=== PATIENT | male | born 1950 | race Caucasian/White ===

== ENCOUNTER 2017-09-08 01:38 | Inpatient (IN) | payer OTHER ==
[~2017-09-08] VITALS: Ht 180.3 cm; Wt 82.6 kg
[2017-09-08] VITALS (8 sets, daily range): BP systolic 95–131; BP diastolic 56–81
[~2017-09-08 01:38] MED LIST: CARVEDILOL25 MG PO; CATAPRES-TTS 20.2 MG TD; COUMADIN 5 MG TA5 M1 PO; CRESTOR20 MG PO; CYMBALTA60 MG PO; LANTUS SUBQ; LISINOPRIL40 MG PO; MS CONTIN15 MG PO; NEURONTIN 300300 M1 PO; NOVOLOG100 UNIT/1 SQ; STOOL SOFT50 MG/5 ML PO; TRIAMTERENE/HCT1 CA1 PO
[2017-09-08 01:58] LABS: HEMATOCRIT 42.1 % (42.0-52.0); HEMOGLOBIN 13.7 gm/dL (14.0-18.0); MCHC 32.7 g/dL (28.0-37.0); MCV 91.8 fL (80.0-100.0); MPV 7.6 fl. (7.2-11.1); NUCLEATED RBCS 0 /100WBC; PLATELET COUNT* 138 thou/uL (150-400); RBC 4.58 mil/uL (4.50-6.00); RDW-CV 16.4 % (10.5-14.5); WBC 11.1 thou/uL (4.0-11.0)
[2017-09-08 02:04] LABS: ANION GAP 4 mmol/L (7-16); BUN 29 mg/dL (7-18); CALCIUM 7.8 mg/dL (8.5-10.1); CHLORIDE 99 mmol/L (98-107); CO2 36 mmol/L (21-32); CREATININE 1.3 mg/dL (0.6-1.3); GLUCOSE 49 mg/dL (70-99); POTASSIUM 3.2 mmol/L (3.5-5.1); SODIUM 139 mmol/L (136-145)
[2017-09-08 02:10] LABS: ALBUMIN 2.6 g/dL (3.4-5.0); ALKALINE PHOSPHATASE 112 U/L (46-116); LIPASE 32 U/L (73-393); SGOT 53 U/L (15-37); SGPT 36 U/L (30-65); TOTAL BILIRUBIN 2.2 mg/dL (<0.1-1.0); TOTAL PROTEIN 6.3 g/dL (6.4-8.2); TROPONIN-I LEVEL <0.06 ng/mL (<0.06)
[2017-09-08 02:11] LABS: INR 3.9; PROTIME 37.4 Seconds (9.20-11.50)
[2017-09-08 03:47] LABS: ABSOLUTE LYMPHOCYTES 0.4 thou/uL (0.8-5.3); ABSOLUTE MONOCYTES 1.3 thou/uL (0.0-1.2); ABSOLUTE NEUTROPHILS 9.3 thou/uL (1.6-8.1)
[2017-09-08 03:48] LABS: ANISOCYTOSIS 1+; PLATELET ESTIMATE DECREASED
[2017-09-08 10:36] LABS: DIRECT BILIRUBIN 0.9 mg/dL (<0.1-0.3); TOTAL BILIRUBIN 2.1 mg/dL (<0.1-1.0)
--- NOTE | 2017-09-08 15:50 | 2DMMODE ---
[place] [address] 2 D/M-MODE ECHOCARDIOGRAM Name: JUSTINO NUÑEZ Room: [address] IN [facility]#: [id number] Admission: 09/08/17 Attend Phys: Jason Coats, Discharge: Date of : 46 Date of Service: 09/08/17 1549 Report #: [id number] THIS REPORT FOR: //name// ADDENDUM APPROVED REPORT Study performed: 09/08/2017 10:51:43 EXAM: Comprehensive 2D, Doppler, and color-flow Echocardiogram Patient Location: In-Patient Room #: [facility] Status: routine BSA: 2.02 HR: 80 bpm BP: 106/81 mmHg Rhythm: NSR Other Information Study Quality: Good Indications Dyspnea 2D Dimensions LVEF(%): 25.70 (>50%) IVSd: 15.83 (7-11mm) LVOT Diam: 20.42 (18-24mm) LVDd: 52.20 mm PWd: 6.65 (7-11mm) Ascending Ao: 41.21 (22-36mm) LVDs: 45.95 (25-40mm) Aortic Root: 35.68 mm Cooper's LVEF: 25.70 % Volumes Left Atrial Volume (Systole) LA ESV Index: 55.50 mL/m2 Aortic Valve AoV Peak Francisco.: 1.19 m/s AO Peak Gr.: 5.69 mmHg LVOT Max P.67 mmHg AO Mean Gr.: 3.42 mmHg LVOT Mean P.66 mmHg LVOT Max V: 0.96 m/s AO V2 VTI: 18.59 cm LVOT Mean V: 0.58 m/s CHAIM (VTI): 2.56 cm2 LVOT V1 VTI: 14.54 cm AI Lewis: 2.12 m/s2 AI PHT: 450.91 [place] [address] 2 D/M-MODE ECHOCARDIOGRAM Name: JUSTINO NUÑEZ Room: [address] IN ..#: [id number] Admission: 09/08/17 Attend Phys: Jason Coats, Discharge: Date of : 46 Date of Service: 09/08/17 1549 Report #: [id number] Mitral Valve E/A Ratio: 2.25 MV Decel. Time: 180.34 ms MV E Max Francisco.: 1.21 m/s MV PHT: 52.30 ms MVA (PHT): 4.21 cm2 TDI E/Lateral E': 11.00 E/Medial E': 24.20 Medial E' Francisco.: 0.05 m/s Lateral E' Francisco.: 0.11 m/s Pulmonary Valve PV Peak Francisco.: 0.78 m/s PV Peak Gr.: 2.45 mmHg Tricuspid Valve RAP Estimate: 15.00 mmHg TR Peak Gr.: 32.35 mmHg RVSP: 47.35 mmHg PA Pressure: 47.35 mmHg Left Ventricle Left ventricle is mildly dilated. There is global hypokinesis with akinesis of the inferior wall. Mild concentric left ventricular hypertrophy. Left ventricular systolic function is moderate to severely decreased. LVEF is 30-35%. This study is not technically sufficient to allow evaluation of the LV diastolic function due to atrial fibrillation. Right Ventricle Right ventricle is mildly dilated. The right ventricular systolic function is normal. Pacemaker lead is present in the right ventricle. Atria Left atrium is severely dilated. Right atrium is moderately dilated. Aortic Valve The aortic valve is normal in structure. Trace aortic regurgitation. There is no aortic valvular stenosis. Mitral Valve The mitral valve is normal in structure. Moderate to severe mitral regurgitation No evidence of mitral valve stenosis. Tricuspid Valve The tricuspid valve is normal in structure. [place] [address] 2 D/M-MODE ECHOCARDIOGRAM Name: NUÑEZJUSTINOJUVENTINO DALLAS Room: [address] IN M.R.#: [id number] Admission: 09/08/17 Attend Phys: Jason Coats, Discharge: Date of : 46 Date of Service: 09/08/17 1549 Report #: [id number] tricuspid regurgitation. Moderate pulmonary hypertension. The RVSP is 45-50 mmHg. Pulmonic Valve The pulmonary valve is normal in structure. Mild pulmonic regurgitation. Great Vessels Aortic root is mildly dilated. IVC is dilated and collapses <50% with inspiration. Pericardium There is no pericardial effusion. <Conclusion> Left ventricle is mildly dilated. Mild concentric left ventricular hypertrophy. Left ventricular systolic function is moderate to severely decreased. LVEF is 30-35%. This study is not technically sufficient to allow evaluation of the LV diastolic function due to atrial fibrillation. Right ventricle is mildly dilated. Left atrium is severely dilated. Right atrium is moderately dilated. Moderate to severe mitral regurgitation Moderate to severe tricuspid regurgitation. Moderate pulmonary hypertension. The RVSP is 45-50 mmHg. Pacemaker lead is present in the right ventricle. Aortic root is mildly dilated. <ELECTRONICALLY SIGNED> By: Augustin Gardner MD, FACC 09/08/17 1549 1549 1549 Augustin Gardner MD, FACC /INF
[2017-09-09 04:00] VITALS: BP 101/63
[2017-09-09 05:07] LABS: HEMATOCRIT 41.5 % (42.0-52.0); HEMOGLOBIN 13.8 gm/dL (14.0-18.0); MCH 30.4 pg (26.0-34.0); MCHC 33.2 g/dL (28.0-37.0); MCV 91.6 fL (80.0-100.0); RBC 4.53 mil/uL (4.50-6.00); RDW-CV 16.7 % (10.5-14.5); WBC 10.9 thou/uL (4.0-11.0)
[2017-09-09 05:21] LABS: INR 3.1; PROTIME 29.5 Seconds (9.20-11.50)
[2017-09-09 05:44] LABS: ALBUMIN 2.2 g/dL (3.4-5.0); ALKALINE PHOSPHATASE 100 U/L (46-116); BUN 20 mg/dL (7-18); CALCIUM 7.7 mg/dL (8.5-10.1); CHLORIDE 102 mmol/L (98-107); CREATININE 1.1 mg/dL (0.6-1.3); GLUCOSE 47 mg/dL (70-99); MAGNESIUM 1.9 mg/dL (1.8-2.4); POTASSIUM 3.5 mmol/L (3.5-5.1); SGOT 38 U/L (15-37); SGPT 27 U/L (30-65); SODIUM 140 mmol/L (136-145); TOTAL BILIRUBIN 2.1 mg/dL (<0.1-1.0); TOTAL PROTEIN 5.7 g/dL (6.4-8.2)
[2017-09-09 05:48] LABS: ANION GAP < 0 mmol/L (7-16); CO2 39 mmol/L (21-32)
[2017-09-09 07:46] VITALS: BP 110/75
[2017-09-09 12:00] VITALS: BP 100/66
[2017-09-09 15:31] VITALS: BP 109/72
[2017-09-09 20:00] VITALS: BP 104/62
[2017-09-10] VITALS: BP 97/64
[2017-09-10 04:00] VITALS: BP 110/71
[2017-09-10 04:09] LABS: HEMATOCRIT 41.1 % (42.0-52.0); HEMOGLOBIN 13.5 gm/dL (14.0-18.0); MCH 30.1 pg (26.0-34.0); MCHC 32.9 g/dL (28.0-37.0); MCV 91.5 fL (80.0-100.0); MPV 7.8 fl. (7.2-11.1); RBC 4.49 mil/uL (4.50-6.00); RDW-CV 16.3 % (10.5-14.5); WBC 12.8 thou/uL (4.0-11.0)
[2017-09-10 04:12] LABS: CALCIUM 7.9 mg/dL (8.5-10.1); CREATININE 1.3 mg/dL (0.6-1.3); MAGNESIUM 1.9 mg/dL (1.8-2.4); POTASSIUM 3.8 mmol/L (3.5-5.1)
[2017-09-10 04:21] LABS: INR 2.2; PROTIME 20.9 Seconds (9.20-11.50)
[2017-09-10 07:50] VITALS: BP 93/61
[2017-09-10 10:08] LABS: HEPATITIS B SURFACE AG Negative (Negative)
--- NOTE | 2017-09-10 10:33 | CON ---
[address] [address] CONSULTATION Name: NUÑEZJUSTINO BURT Room: [address] ADM IN M.R.#: [id number] Admission: 09/08/17 Attend Phys: Jason Coats MD Discharge: Date of : 46 Report #: [id number] THIS REPORT FOR: //name// CC: Jason Coats [facility] physician/PCP DATE OF SERVICE: 09/09/2017 REQUESTING PHYSICIAN: Jason Coats MD CHIEF COMPLAINT: Shortness of breath. HISTORY OF PRESENT ILLNESS: The patient is a 67-year-old man with a history of heart disease, [facility] brought him here. Clinically, he denies chest pain or pressure. He was brought in with volume overload. Most of his distention was involved in his abdomen rather than lower extremities. He has chronic dyspnea with exertion. He has also underlying history of lung disease. ECG showed a paced rhythm. His troponin is normal. Although he has had coronary interventions following remote bypass surgery, he has not been having angina, most of his problems apparently had been centered around congestive heart failure and liver disease. He has a history of alcoholic cirrhosis. He denies syncope or presyncope. He also has a history of confusion and associated encephalopathy. PAST MEDICAL HISTORY: 1. Remote bypass surgery. He cannot remember the number of bypasses, where it was, but he thinks it was somewhere in [place], was over 20 years ago. He has also had what sounds like 2 separate PCIs. He had an echocardiogram this hospitalization, which revealed an EF in the 35% range, demonstrated moderate to severe mitral regurgitation as well as a dilated chambers and moderate to severe tricuspid regurgitation, PA pressures in the 50 mmHg range. 2. Pulmonary hypertension. 3. Alcoholic liver disease. 4. COPD. 5. Diabetes mellitus, insulin requiring. 6. afib HOME MEDICATIONS: Coreg 25 mg p.o. b.i.d., Cymbalta 60 mg at bedtime, Neurontin, HCTZ/triamterene 25/37.5 mg daily, lisinopril 40 mg daily, rosuvastatin 20 mg daily and warfarin 5 mg daily presumably for an atrial arrhythmia. REVIEW OF SYSTEMS: GENERAL: No [place] [address] CONSULTATION Name: NUÑEZJUSTINOJUVENTINO DALLAS Room: [address] IN [facility].#: [id number] Admission: 09/08/17 Attend Phys: Jason Coats MD Discharge: Date of : 46 Report #: [id number] PULMONARY: No cough. Positive dyspnea with exertion, positive orthopnea, positive PND. CARDIOVASCULAR: No chest pain. No palpitations. NEUROLOGIC: No syncope or seizures. HEMATOLOGIC: No anemia or bleeding disorders. RENAL: No history of kidney failure. No history of dialysis. SKIN: No rashes. GENITOURINARY: No dysuria or hematuria. ABDOMEN: Positive distention. No constipation. PHYSICAL EXAMINATION: VITAL SIGNS: Blood pressure is 110/75, pulse is 80. GENERAL: He is a poor historian. He is in no apparent distress. He is sitting on the edge of the bed. His weight is 82 kilograms. This is a cachectic appearing elderly male. HEENT: No trauma. Eyes: There is evidence of an icteric changes. NECK: There is no jugular venous distention. CARDIOVASCULAR: Regular. There is a 3/6 systolic murmur and S3. LUNGS: Diminished breath sounds bilaterally. ABDOMEN: Distended, nontender. No rebound. EXTREMITIES: There is a trace amount of edema. NEUROLOGIC: There are no focal deficits. RADIOLOGY: Chest x-ray reveals pacemaker leads in the interstitial pattern. Abdominal ultrasound demonstrated hepatosplenomegaly, mild to moderate ascites. LABORATORY DATA: Hemoglobin is 13.8. Sodium is 140, potassium 3.5, CO2 is 39, anion gap was less than 0, BUN was 20, creatinine is 1.1. IMPRESSION: 1. Acute systolic congestive heart failure. This appears to be chronic left ventricular dysfunction. We will try to obtain records from the [facility]. In the meantime, I think he will have continued benefit with diuresis. There is also a component of volume overload secondary to his alcoholic liver disease and ascites. 2. Encephalopathy. This patient is a poor historian. GI consult may be helpful. 3. Hypertension. This is stable. 4. Diabetes mellitus. 5. Coronary artery disease. He reports no angina and he does not seem to be a good candidate for an ischemic evaluation as I do not think he has a clinical angina. 6. Mitral valve and tricuspid valve disease. He has moderate to severe disease and regurgitation of both valves and evidence of volume overload and the patient clinically does not appear to be a good candidate for aggressive treatment. I will continue with diuretic therapy. [address] [address] CONSULTATION Name: JUSTINO NUÑEZ Room: [facility] IN [place].#: [id number] Admission: 09/08/17 Attend Phys: Jason Coats MD Discharge: Date of : 46 Report #: [id number] 7. warfarin anticoagulation- he will continue with this treatment as per his usual him specialist recommendations/follow up <ELECTRONICALLY SIGNED> By: Marito Etienne MD, FACC 09/10/17 1033 1247 1819Marito Etienne MD, FACC /nt
[2017-09-10 11:46] LABS: URINE BILIRUBIN NEGATIVE (Negative); URINE BLOOD NEGATIVE (Negative); URINE CLARITY CLEAR; URINE COLOR YELLOW; URINE GLUCOSE-RANDOM 2+ (Negative); URINE KETONES NEGATIVE (Negative); URINE LEUKOCYTES-REFLEX NEGATIVE (Negative); URINE NITRITE-REFLEX NEGATIVE (Negative); URINE PROTEIN NEGATIVE (Negative); URINE SPECIFIC GRAVITY <= 1.005 (1.005-1.030); URINE UROBILINOGEN 0.2 E.U./dl (0.2-1.0)
[2017-09-10 12:25] VITALS: BP 85/55
[2017-09-10 16:20] VITALS: BP 87/56
[2017-09-10 20:00] VITALS: BP 99/66
[2017-09-11] VITALS: BP 110/70
[2017-09-11 04:00] VITALS: BP 115/78
[2017-09-11 04:57] LABS: INR 3.1
[2017-09-11 08:59] VITALS: BP 119/84
[2017-09-11] MEDS ORDERED: PREDNISONE 10 M10 MG PO (09:36)
[2017-09-11] MEDS ORDERED: LASIX 40 MG TAB40 M1 PO (09:36)
[2017-09-11 10:34] VITALS: BP 119/84
[2017-09-12 08:08] LABS: ANA INTERPRETATION Negative (Negative)
--- NOTE | 2017-09-22 16:59 | CON ---
[address] [address] CONSULTATION Name: JUSTINO NUÑEZ Room: [address] IN M.R.#: [id number] Admission: 09/08/17 Attend Phys: Jason Coats MD Discharge: 09/11/17 Date of : 46 Report #: [id number] THIS REPORT FOR: //name// CC: Jason BORDEN Physician staff DATE OF SERVICE: 09/10/2017 REASON FOR CONSULT: Evaluation for liver disease. HISTORY OF PRESENT ILLNESS: This is a 67-year-old male who was initially admitted for hypoglycemia. The patient has history of diabetes and receives insulin at home. He also has COPD for which he was admitted to [facility] a couple of months ago. He currently is lying in bed and denies any significant symptoms. He reports that he actually feels pretty good. He is tolerating his diet and denies nausea, vomiting, hematemesis, melena, hematochezia, constipation and diarrhea. The patient also has history of coronary artery disease status post CABG 20 years ago. He has a pacemaker as well. PAST MEDICAL HISTORY: Significant for: 1. History of hypertension. 2. Insulin-dependent diabetes. 3. Coronary artery disease, status post coronary artery bypass graft. 4. Chronic kidney disease. 5. Chronic obstructive pulmonary disease. 6. History of pacemaker placement. 7. Chronic anticoagulation therapy. 8. Depression. ALLERGIES: No known drug allergy. MEDICATIONS: Please refer to hospital MAR. SOCIAL HISTORY: The patient smokes half a pack of cigarettes per day, but reports that he quit 7 days ago. He also has remote history of alcohol use, but denies any alcohol consumption. He lives at home with his . FAMILY HISTORY: Noncontributory. PHYSICAL EXAMINATION: VITAL SIGNS: Reveals blood pressure of 85/55, respiration is 18, pulse 87, temperature 97.4. LUNGS: [place] [address] CONSULTATION Name: JUSTINO NUÑEZ Room: [address]#: [id number] Admission: 09/08/17 Attend Phys: Jason Coats MD Discharge: 09/11/17 Date of : 46 Report #: [id number] CARDIOVASCULAR: Regular. ABDOMEN: Large, soft, nontender, nondistended. Bowel sounds are positive. LABORATORY DATA: Reveal sodium of 134, potassium is 96. Total bilirubin is 2.1 with lipase of 32, AST 38. INR is 2.2. Viral hepatitis serology is negative. WBC is 12.8 with hemoglobin of 13.5, and platelet of 114. IMAGING: Abdominal ultrasound was obtained, which revealed hepatosplenomegaly with [id number] abdominal ascites. There is also evidence of cholecystectomy. ASSESSMENT AND PLAN: The patient with hepatosplenomegaly per ultrasound and elevated bilirubin. His viral hepatitis serology is negative. He also has [id number] ascites. We would recommend tapping the ascitic fluid for analysis. If there is evidence of ascites associated with cirrhosis, we will consider EGD and rule out other etiologies of liver disease. <ELECTRONICALLY SIGNED> By: Leroy Jacques MD 09/22/17 1659 1419 1817Leroy Jacques MD /nt
== END 2017-09-11 11:56 | disposition home or self-care (01) | DRG 432 ==
LOC: M.ERS 01:38 → M.TBA-ER 02:54 → M.2W 02:54
PROVIDERS: Emergency Medicine; Internal Medicine; ADMIT Internal Medicine
DX: K70.40 Alcoholic hepatic failure without coma (principal); G92 Toxic encephalopathy; N17.0 Acute kidney failure with tubular necrosis; I50.21 Acute systolic (congestive) heart failure; R65.10 Systemic inflammatory response syndrome (SIRS) of non-infectious origin without acute organ dysfunction; I13.0 Hypertensive heart and chronic kidney disease with heart failure and stage 1 through stage 4 chronic kidney disease, or unspecified chronic kidney disease; E44.0 Moderate protein-calorie malnutrition; K70.31 Alcoholic cirrhosis of liver with ascites; E11.649 Type 2 diabetes mellitus with hypoglycemia without coma; I48.91 Unspecified atrial fibrillation; K70.9 Alcoholic liver disease, unspecified; F32.9 Major depressive disorder, single episode, unspecified; R16.2 Hepatomegaly with splenomegaly, not elsewhere classified; F17.210 Nicotine dependence, cigarettes, uncomplicated; E11.22 Type 2 diabetes mellitus with diabetic chronic kidney disease; N18.3 Chronic kidney disease, stage 3 (moderate); I08.1 Rheumatic disorders of both mitral and tricuspid valves; I25.10 Atherosclerotic heart disease of native coronary artery without angina pectoris; I27.20 Pulmonary hypertension, unspecified; J44.9 Chronic obstructive pulmonary disease, unspecified; Z95.0 Presence of cardiac pacemaker; Z95.1 Presence of aortocoronary bypass graft; Z68.25 Body mass index [BMI] 25.0-25.9, adult; Z79.01 Long term (current) use of anticoagulants; Z79.4 Long term (current) use of insulin; Z79.899 Other long term (current) drug therapy